=== PATIENT | female | born 1975 | race Caucasian/White ===

== ENCOUNTER 2017-04-22 20:32 | Observation (INO) ==
[2017-04-22] MEDS ORDERED: NS 1,000 ML IV ONE ×2 (20:37→20:38)
[2017-04-22 21:08] LABS: MANUAL DIFF NEEDED? NO
[2017-04-22 21:10] LABS: BASO% 0.2 % (0.0-0.8); EOS# 0.18 X1000 (0.0-0.7); EOS% 1.9 % (0.0-10.0); HEMATOCRIT 40.5 % (37.0-47.0); IMM GRAN# 0.02 X1000 (0.0-0.04); IMM GRAN% 0.2 % (0.0-0.5); LYMPH# 2.64 X1000 (1.2-3.4); LYMPH% 27.9 % (20.5-51.1); MCH 25.4 PG (27-31); MCHC 32.1 g/dL (33-37); MCV 79.1 FL (81-99); MONO# 0.43 X1000 (0.11-0.59); MONO% 4.5 % (1.7-9.3); MPV 9.9 FL (7.4-10.4); NEUT% 65.3 % (42.2-75.2); PLT 351 X1000 (130-400); RBC 5.12 XMIL (4.2-5.4)
[2017-04-22 21:36] LABS: AGAP 14; ALBUMIN 4.2 g/dL (3.5-5.0); ALKALINE PHOSPHATASE 67 U/L (32-104); BUN 8 mg/dL (8-22); CALCIUM 9.3 mg/dL (8.8-10.2); CHLORIDE 97 mmol/L (98-107); COSMO 268; GOT 12 U/L (10-30); GPT 11 U/L (10-36); POTASSIUM 4.1 mmol/L (3.5-5.1); SODIUM 135 mmol/L (136-145); TCO2 24 mmol/L (25-35); TOTAL PROTEIN 8.6 g/dL (6.3-8.3)
[2017-04-22 23:23] LABS: AMYLASE 73 U/L (20-200); LIPASE 37 U/L (13-60)
[2017-04-22] MEDS ORDERED: PROTONIX PO ONE (23:32)
--- NOTE | 2017-04-23 01:05 | PROVIDER DOCUMENTATION ---
This chart was entered by Harika Quach Scribe, acting as scribe for Carlos Gonzalez MD. HPI-Abdominal Pain/GI Problem - General Chief Complaint: Return/Recheck Stated Complaint: N/V Time Seen by Provider: 04/22/17 20:36 Source: patient Allergies/Adverse Reactions: Patient Allergies Allergy/AdvReac Type Severity Reaction Status Date / Time codeine AdvReac HIVES Verified 04/14/17 19:14 Sulfa (Sulfonamide AdvReac SWELLING Verified 04/14/17 20:58 Antibiotics) Home Medications: Home Medication List Medication Instructions Recorded Confirmed Last Taken Type LISINOpril [Prinivil] 20 mg PO DAILY 04/14/17 04/21/17 Unknown History Metoprolol [Lopressor] 25 mg PO DAILY 04/14/17 04/21/17 Unknown History Ciprofloxacin HCl [Cipro] 500 mg PO BID #30 tablet 04/15/17 04/21/17 Unknown Rx Hydrocodone/APAP 5 mg/325 mg 1 - 2 tab PO Q6H PRN PRN #18 tablet 04/15/17 Unknown Rx [[place]-5] Metronidazole [Flagyl] 500 mg PO TID #30 tablet 04/15/17 04/21/17 Unknown Rx Ondansetron Odt [Zofran 8Mg Odt] 8 mg PO Q8H PRN PRN #10 tablet 04/21/17 Unknown Rx - History of Present Illness-ABD Nature of Presenting Problems: 42 year old F presents to the ED with a cc of persistent weakness and nausea. PT states that 8 weeks ago she developed mid-ABD pain. PT treated pain at home with clear liquids and it resolved. PT states that 1 week later the pain returned. Pt was seen at Urgent Care and was given antibiotics. PT states that she also treated it with clear fluids. Last week had the same episode and was seen in the ED. PT was prescribed Flagyl and Cipro and states that it has been helping. Pt states that she is still unable to eat very much. PT was seen yesterday due to weakness, nausea, and vomiting. PT states that her stools have also been more lose than normal x1 week. Pt states that she has also been short of breath but believes that it could be related to not taking a deep breath due to the pain. PT states that she has lost 15 pounds over the last month. Abdominal Pain Onset Location: reports: other (mid ABD) Pain Radiation: reports: no radiation Onset/Duration: reports: other (6-8 weeks) Timing: reports: intermittent Associated Symptoms: reports: nausea, shortness of breath, vomiting, weakness Bruising or Bleeding Gums?: No Similar Symptoms Previously?: Yes Recently seen or treated by another doctor?: Yes Review of Systems - Adult - REVIEW OF SYSTEMS - ADULT Constitutional: denies: chills, fever Eyes: reports: no symptoms reported Ears, Nose, Mouth & Throat: denies: ear pain, throat pain Cardiovascular: denies: chest pain, palpitations Respiratory: reports: shortness of breath. denies: cough Gastrointestinal: reports: abdominal pain, nausea, vomiting Genitourinary: denies: dysuria, hematuria Musculoskeletal: denies: bone pain, back pain Integumentary: denies: skin sores/ulcer, skin thickening Neurological: denies: dizziness/vertigo, headache/migraines Psychiatric: reports: no symptoms reported Endocrine: reports: no symptoms reported Hematologic/Lymphatic: reports: no symptoms reported Allergic/Immunologic: reports: no symptoms reported All Other Systems: Reviewed and Negative Past History - Adult - PAST MEDICAL HISTORY-ADULT Review of Records: reports: Nursing Assessment Review, Medications Reviewed Major Childhood Illnesses: reports: denies history Cardiovascular: reports: HTN Respiratory: reports: denies history Gastrointestinal: reports: denies history Obstetrical/Gynecological: reports: denies history Genitourinary: reports: denies history Musculoskeletal: reports: denies history Neurological: reports: denies history Endocrine/Immune: reports: denies history Other Conditions: reports: denies history - PRIOR SURGERIES/PROCEDURES Surgical/Procedure History: reports: cholecystectomy, bowel surgery, other (lap) - IMMUNIZATION STATUS Childhood Immunizations: See Nurse Assessment Flu Vaccine: See Nurse Assessment - FAMILY HISTORY Family History: reviewed, not pertinent - SOCIAL HISTORY Smoking: non-smoker Substance Use: none/never Alcohol Use Frequency: never Living Situation: family Physical Exam-General - PHYSICAL EXAM-ADULT Initial Vital Signs Reviewed: Yes - CONSTITUTIONAL General Appearance: alert - EYES Eyes: PERRL/EOMI, pink conjunctivae - HEAD, EARS, NOSE, MOUTH & THROAT HENMT: normocephalic/atraumatic, moist mucous membranes, pharynx normal - RESPIRATORY Respiratory: chest non-tender, lungs clear, normal breath sounds - CARDIOVASCULAR Cardiovascular: normal peripheral pulses, regular rate, rhythm, no edema - GASTROINTESTINAL (ABDOMEN) Abdominal Exam: normal bowel sounds, soft, tenderness (mid ABD tenderness) - SKIN Integumentary: normal color, normal turgor, warm/dry - PSYCHIATRIC Psych/Mental Status: normal mood/affect, normal thought content, normal thought process, oriented x 3 Progress - PLAN OF CARE/RESULTS Progress/Plan/Lab Results: Vital Signs - 8 hr 04/22/17 20:34 Temperature 98 F Pulse Rate 96 H Respiratory Rate 18 Blood Pressure 148/87 O2 Sat by Pulse Oximetry 100 Laboratory Results - last 24 hr 04/22/17 21:04 WBC 9.46 RBC 5.12 Hgb 13.0 Hct 40.5 MCV 79.1 L MCH 25.4 L MCHC 32.1 L RDW Std Deviation 15.0 H Plt Count 351 MPV 9.9 Immature Gran % (Auto) 0.2 Neut % (Auto) 65.3 Lymph % (Auto) 27.9 [place] % (Auto) 4.5 Eos % (Auto) 1.9 Baso % (Auto) 0.2 Immature Gran # (Auto) 0.02 Neut # (Auto) 6.17 Lymph # (Auto) 2.64 [place] # (Auto) 0.43 Eos # (Auto) 0.18 Baso # (Auto) 0.02 Orders Category Date Time Status ED: Orthostatic Vital Signs (E as directed Care 04/22/17 20:[address]IN [address] Stat Lab 04/22/17 20:37 Ordered C DIFF TOXIN [STOOL] Stat Lab 04/22/17 20:38 Uncollected CBC WITH DIFF [HEME] Stat Lab 04/22/17 21:04 Completed COMPREHENSIVE METABOLIC PANEL [CHEM] Stat Lab 04/22/17 21:04 Received H PYLORI ANTIGEN STOOL [HARDEN] Stat Lab 04/22/17 20:37 Uncollected OCCULT BLOOD SCREEN STOOL PL Stat Lab 04/22/17 20:37 Uncollected STOOL CULTURE [RM] Stat Lab 04/22/17 20:37 Uncollected WBC STOOL [STOOL] Stat Lab 04/22/17 20:37 Uncollected 0.9% Sodium Chloride Inj [Ns] 1,000 ml Med 04/22/17 20:38 Active IV 150 mls/hr 0.9% Sodium Chloride Inj [Ns] 1,000 ml Med 04/22/17 20:37 Active IV 999 mls/hr Result Diagrams: 04/22/17 21:04 04/22/17 21:04 - CONSULTS/PCP/HOSPITALIST Notification #1 *Consult/PCP/Hospitalist*: Dr. Burger(hospitalist) Time Discussed: 23:35 Reason/Comments: consult for admission Consult Disposition: Admit #2 Consult: Dr. Doty(GI) Time Discussed: 00:44 Reason/Comments: consult Consult Disposition: other (NPO at 0800, will consult) Departure - Departure Date of Disposition Decision: 04/23/17 Time of Disposition Decision: 00:57 DIAGNOSIS: Abdominal pain Qualifiers: Abdominal location: unspecified location Qualified Code(s): R10.9 - Unspecified abdominal pain Disposition: ADMITTED INPATIENT 09 Certified Medical Emergency: Emergent Condition: Good Referrals and Follow-Ups: None,PCP [Primary Care Provider] - - Critical Care Note This patient required my direct & personal management of CC.: No Attestation - Physician/ KENNY Attestation Patient care was provided by Advanced Practice Provider:: No The physician spent face to face time with patient:: Yes (Only me) Advanced Practice Provider documentation review:: Supervising physician onsite and consulted in the evaluation and care of this patient. The physician did have a face to face encounter with the patient. This chart was documented by the indicated scribe, (Harika Quach Scribe) and accurately reflects the services I performed and decisions made by me, Carlos Gonzalez MD, as attested by the provider's signature.
[2017-04-23] MEDS ORDERED: TYLENOL PO PRN (01:06)
[2017-04-23] MEDS ORDERED: NS 1,000 ML IV ONE (01:06)
[2017-04-23] MEDS ORDERED: ULTRAM PO PRN (01:06)
[2017-04-23] MEDS ORDERED: FLUZONE QUAD 2017-2018 SYRINGE IM ONE (03:02)
[2017-04-23 03:57] LABS: OCCULT BLOOD 1 NEGATIVE (NEGATIVE)
[2017-04-23] MEDS: REGLAN IV PRN ×2 (04:26→10:38)
[2017-04-23] MEDS ORDERED: APRESOLINE IV ONE (06:41)
[2017-04-23 11:17] VITALS: BP 159/65
--- NOTE | 2017-04-23 20:21 | HISTORY AND PHYSICAL ---
CHIEF COMPLAINT: Weakness, nausea. HISTORY OF PRESENT ILLNESS: This is a 42-year-old female who presents to the emergency room for the 3rd time in a week complaining of persistent nausea with increasing weakness. She states that 8 weeks ago she developed a midabdominal pain. She did treat at home with clear liquids and it resolved. It did return a week later and has been present since. She was 1st seen in an urgent care and given antibiotics with no resolution of symptoms, 1 week ago she presented to [facility] ED was treated with Flagyl and Cipro, felt that it might be helping during antibiotics but once antibiotics were stopped she developed persistent nausea and vomiting as well as diarrhea. She has had anorexia and is able to only eat bites at a time due to her nausea and abdominal pain. She does state that she has lost 15 pounds during this last 4 weeks with this episode. She denied any fever, chills, black or bloody vomitus, black or bloody stools. She denied camping, any drinking any well or spring water or being around . PAST MEDICAL HISTORY: Hypertension. PAST SURGICAL HISTORY: Cholecystectomy. SOCIAL HISTORY: She denies alcohol, tobacco, or illicit drug use. ALLERGIES: Codeine which causes hives and sulfa which causes swelling. HOME MEDICATIONS: Zantac 150 as needed, Culturelle daily, Prinivil 20 at bedtime, Zofran 8 mg p.r.n., Lopressor 25 at bedtime, Cipro 500 mg b.i.d. and Flagyl 500 t.i.d. REVIEW OF SYSTEMS: A 14 point review of systems is discussed with patient with pertinent positives stated above. She denied chest pain, palpitations, dizziness, syncope, shortness of breath, cough, fever, chills, black or bloody vomitus, black or bloody stools, hematuria, dysuria, frequency, urgency. PHYSICAL EXAMINATION: GENERAL: This is a 42-year-old female who is sitting in the bed in no distress. VITAL SIGNS: Blood pressure is 160/60 with a heart rate of 89, respirations are 18, temperature is 98.3 degrees with O2 saturations 98% on room air. HEENT: Head is normocephalic, atraumatic. Pupils equal, round, react to light. EOMs are intact. Sclerae anicteric. Mucous membranes are dry. NECK: Supple. Trachea midline. CARDIOVASCULAR: Regular rate and rhythm. S1, S2 appreciated. PULMONARY: Breath sounds are clear with no increased work of breathing noted. GASTROINTESTINAL: Abdomen is soft, tender in the umbilical to epigastric area with bowel sounds in all 4 quadrants. EXTREMITIES: No clubbing, cyanosis, or edema. Calves nontender. Pulses are palpable x4. DIAGNOSTICS: WBC is 9.4 with a hemoglobin 13, hematocrit 40.5 and platelets of 351,000. Sodium is 135, potassium 4.1, BUN 8, creatinine 0.9, with a glucose of 94. CRP is 18. Occult blood and C. difficile toxin are negative. ASSESSMENT AND PLAN: 1. Abdominal pain. 2. Nausea, vomiting and diarrhea. She will be admitted to the hospital. She will receive IV hydration as well as PPI. Dr. Doty was contacted by the emergency room physician and labs were ordered per her instructions. INCOMPLETE REPORT -- DICTATION ENDS HERE. Dictated by GREER Villegas for Jose Burger MD cc: GREER Villegas MD
--- NOTE | 2017-04-23 22:22 | PROGRESS NOTE ---
DATE: 04/23/2017 ADDENDUM: Patient seen and examined. Full note dictated by nurse practitioner. Patient states that she is feeling a little bit better. She is having less abdominal pains but abdominal pain has been going on for several weeks and that is the reason she finally came to the ER. She does have an outpatient appointment GI but was unsure that she could wait until then. On exam she is awake, alert, oriented. Vital signs are stable. Labs are normal. Exam is benign. Abdomen is soft. Positive bowel sounds. Hopefully we can discharge her home later this afternoon if she is able to keep down oral liquids. cc: Jose Burger MD
--- NOTE | 2017-04-24 12:37 | DISCHARGE SUMMARY ---
ADMISSION DATE: 04/22/2017 DISCHARGE DATE: 04/23/2017 DIAGNOSES: 1. Abdominal pain. 2. Nausea, vomiting, and diarrhea. 3. A 15-pound weight loss. HOSPITAL COURSE: Ms. Jack presented to the ER for the 3rd time in 8 days complaining of increasing generalized weakness, nausea, with frequent vomiting and diarrhea as well as a 15 pound weight loss in the last month. WBC was 9 with stable hemoglobin and hematocrit. She was noted to have a sedimentation rate of 29 as well as a CRP of 18. Stool for Clostridium difficile and occult blood were negative. Her vital signs were stable. Dr. Doty was contacted by the emergency room. Labs were drawn as per her instructions. As the patient had no nausea are diarrhea while in the hospital, it was felt by Dr. Burger that she was able to be discharged and follow up with Dr. Doty at her scheduled appointment. DISCHARGE PHYSICAL EXAMINATION: Cardiovascular: Regular rate and rhythm. S1, S2 appreciated. Pulmonary: Breath sounds are clear with no increased work of breathing noted. Gastrointestinal: Abdomen is soft, nontender, nondistended. Bowel sounds in all 4 quadrants. Extremities: No clubbing, cyanosis, or edema. Calves nontender. Pulses are palpable x4. OBJECTIVE: Vital Signs: Blood pressure 159/65, heart rate of 84, respirations are 18, temperature is 98.3 degrees oral. Room air saturations of 97%. DISCHARGE MEDICATIONS: Zantac 150 daily, Culturelle 1 daily, lisinopril 20 at bedtime, Zofran ODT as needed. Lopressor 25 at bedtime. Cipro 500 b.i.d. Flagyl 500 t.i.d. as directed. DISCUSSION: The patient was upset and frustrated as these symptoms have persisted with no findings. Over this last month she has had multiple abdominal x-rays. She did have a CT of the abdomen and pelvis on April 15 which revealed thickened small bowel loops in colon which may represent enteritis and colitis with a tiny hiatal hernia and nonspecific hyperdense hepatic lesion which may be a cyst or hemangioma. I did recommend to the patient that she follow up with Dr. Doty follow her treatment guidelines. Thankfully no tumors, masses or obstructions were seen and whatever is causing this is more discrete and she needs to work with Dr. Doty and allow her to do the proper testing to get a diagnoses. The patient did understand and agree to this. DISCHARGE INSTRUCTIONS: I did tell her to call Dr. Doty's office if she develops a temperature over 101, if she had a recurrence of vomiting, diarrhea, any black or bloody vomitus, black or bloody stools, increase in pain or persistent pain or any concerns that she may have. DISPOSITION: She is discharged home in stable condition with family members. Dictated by GREER Villegas for Jose Burger MD cc: GREER Villegas MD
[2017-04-24 13:20] LABS: HIV ANTIBODY SCREEN SEE COMMENTS
[2017-04-26 11:56] LABS: HEPATITIS PROFILE ACUTE SEE COMMENTS
== END 2017-04-23 11:30 | disposition home or self-care (01) ==
LOC: P.ED 20:32 → INTOOBSV 20:33 → P.MEDSURG 20:33
PROVIDERS: ATTEND Family Medicine